=== PATIENT | male | born 1965 | race Caucasian/White ===

== ENCOUNTER 2018-03-07 14:26 | Inpatient (IN) | payer OTHER ==
[~2018-03-07] VITALS: Ht 185.4 cm; Wt 111.6 kg
[2018-05-14] VITALS (11 sets, daily range): BP systolic 104–125; BP diastolic 64–87; PULSE 81–100; TEMP 97.2–98.1
[2018-05-14] MEDS ORDERED: MOTRIN 600600 MG/TAB PO (06:41)
[2018-05-14] MEDS ORDERED: PRILOSEC 20MG20 MG PO (06:42)
[2018-05-14] MEDS ORDERED: MIRALAX PA17 GM/Dose PO (06:43)
[2018-05-14] MEDS ORDERED: ZOCOR 10MG10 MG PO (06:44)
[2018-05-14] MEDS ORDERED: COLACE 100100 MG/CAP PO (06:45)
[2018-05-14] MEDS ORDERED: TYLENOL 500MG500 MG PO (06:45)
[2018-05-14] MEDS ORDERED: STELARA90 MG/ML SQ (06:46)
[2018-05-15 00:02] VITALS: BP 100/63; PULSE 100; TEMP 98.6
[2018-05-15 03:39] VITALS: BP 97/62; PULSE 90; TEMP 98.1
[2018-05-15 06:48] LABS: BASO % 0.2 % (0.0-2.0); EOS % 0.4 % (0-4.0); GRAN # 7.7 (1.4-6.5); GRAN % 70.6 % (42.2-75.2); HEMATOCRIT 43.2 % (42.0-52.0); HEMOGLOBIN 14.7 g/dl (13.5-18.0); LYMPH # 2.1 (1.2-3.4); LYMPH % 19.6 % (20.0-51.0); MEAN CELL VOLUME 95 fl (80.0-100.0); MEAN CORPUSCULAR HEMOGLOBIN 32 pg (27.0-31.0); MEAN CORPUSCULAR HGB CONC 34 g/dl (33.0-37.0); MEAN PLATELET VOLUME 8.9 fl (7.4-10.4); MONO # 0.9 (0.1-0.6); MONO % 8.7 % (1.7-9.3); PLATELET COUNT 190 K/mm3 (130-400); RED BLOOD COUNT 4.57 M/mm3 (4.20-5.60); REDCELL DISTRIBUTION WIDTH-CV 12.9 % (11.5-14.5)
[2018-05-15 06:58] LABS: CALCIUM 8.5 mg/dL (8.4-10.2); CREATININE, serum 1.27 mg/dL (0.66-1.25); POTASSIUM 4.2 mmol/L (3.4-5.0)
[2018-05-15 08:07] VITALS: BP 110/76; PULSE 87; TEMP 97.8
[2018-05-15 11:20] VITALS: BP 102/74; PULSE 94; TEMP 98.1
== END 2018-05-15 15:06 | disposition home or self-care (01) | DRG 714 ==
LOC: INPTSU 05-14 05:34 → SURG 05-14 07:30
PROVIDERS: Urology
PROC: 8E0W8CZ Robotic Assisted Procedure of Trunk Region, Via Natural or Artificial Opening Endoscopic (ICD-10-PCS; 2018-05-14)
PROC: 0VT08ZZ Resection of Prostate, Via Natural or Artificial Opening Endoscopic (ICD-10-PCS; principal; 2018-05-14 07:30)
DX: C61 Malignant neoplasm of prostate (principal)
CPT/HCPCS: A9284; C1713; J0690; J1100; J1885; J2370; J2405; J2704; J7120

== ENCOUNTER → 2018-09-18 | Outpatient (CLI) | payer OTHER ==
[~2018-09-18] MED LIST: COLACE 100100 MG/CAP PO; MIRALAX PA17 GM/Dose PO; MOTRIN 600600 MG/TAB PO; PRILOSEC 20MG20 MG PO; STELARA90 MG/ML SQ; TYLENOL 500MG500 MG PO; ZOCOR 10MG10 MG PO
== END ==
LOC: COL.VAS 10:07
DX: I82.501 Chronic embolism and thrombosis of unspecified deep veins of right lower extremity (principal); I26.99 Other pulmonary embolism without acute cor pulmonale; I51.7 Cardiomegaly